=== PATIENT | female | born 1945 | race Caucasian/White ===

== ENCOUNTER 2022-03-19 15:20 | Emergency (ER) | payer OTHER ==
--- NOTE | 2022-03-19 16:14 | RAD REPORT ---
EXAM DESCRIPTION: RAD - Knee Left 3 View - 03/19/2022 3:57 pm CLINICAL HISTORY: PAIN COMPARISON: No comparisons FINDINGS: Diffuse osteopenia is seen. There is lucency involving the inferior pole of the patella li socrates related to a patella fracture. No dislocation.
--- NOTE | 2022-03-19 16:46 | EDPHYS ---
Physician Documentation [facility] Name: Olay Krause Age: 76 yrs Sex: Female : 1945 Arrival Date: 03/19/2022 Time: 15:21 Bed 14 Private MD: ED Physician Nixon Parks HPI: 03/19 16:42 This 76 yrs old Female presents to ER via Wheelchair with complaints of Fall Injury, kb Knee Pain. 16:42 Details of fall: The patient fell from an upright position, while walking. Onset: The kb symptoms/episode began/occurred just prior to arrival. Associated injuries: The patient sustained left knee, ecchymosis, painful injury, swelling. Severity of symptoms: At their worst the symptoms were mild, moderate, in the emergency department the symptoms are unchanged. The patient has not experienced similar symptoms in the past. The patient has not recently seen a physician. Pt reports left knee pain after falling onto it today. States she is able to walk, but increases pain when she bears weight. . 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 - Social history:: Smoking status: Patient denies any tobacco usage or history of. ROS: 16:37 Constitutional: Negative for fever, chills, and weight loss. kb 16:37 MS/extremity: Positive for ecchymosis, pain, swelling, tenderness, of the left knee. 16:37 All other systems are negative. Exam: 16:37 Constitutional: This is a well developed, well nourished patient who is awake, alert, kb and in no acute distress. Head/Face: Normocephalic, atraumatic. ENT: Moist Mucous membranes Respiratory: Respirations even and unlabored. No increased work of breathing. Talking in full sentences Neuro: Awake and alert, GCS 15, oriented to person, place, time, and situation. Moves all extremities. Normal gait. Psych: Awake, alert, with orientation to person, place and time. Behavior, mood, and affect are within normal limits. 16:37 Musculoskeletal/extremity: Extremities: grossly normal except: noted in the left knee: ecchymosis, pain, swelling, tenderness, ROM: limited active range of motion due to pain, Circulation is intact in all extremities. Sensation intact. Weight bearing: can bear weight with assistance only. Vital Signs: 15:30 BP 118 / 40; Pulse 71; Resp 16; Temp 97.6; Pulse Ox 100% ; Weight 77.11 kg; Height 5 ap3 ft. 3 in. (160.02 cm); Pain 5/10; 15:30 Body Mass Index 30.11 (77.11 kg, 160.02 cm) ap3 MDM: 16:08 Patient medically screened. kb 16:35 Data reviewed: vital signs, nurses notes. Data interpreted: Pulse oximetry: on room air kb is 100 %. Interpretation: normal. Counseling: I had a detailed discussion with the patient and/or guardian regarding: the historical points, exam findings, and any diagnostic results supporting the discharge/admit diagnosis, radiology results, the need for outpatient follow up, a orthopedic surgeon, to return to the emergency department if symptoms worsen or persist or if there are any questions or concerns that arise at home. 16:46 ED course: Pt declines pain medication at this time. kb 03/19 15:35 Order name: XRAY Knee LEFT 3 view; Complete Time: 16:17 ap3 03/19 16:23 Order name: Knee Immobilizer; Complete Time: 17:03 kb Administered Medications: No medications were administered Disposition Summary: 03/19/22 16:45 Discharge Ordered Location: Home kb Condition: Stable kb Diagnosis - Nondisplaced fracture left patella kb Followup: kb - With: Emergency Department - When: As needed - Reason: Worsening of condition Followup: kb - With: Private Physician - When: 2 - 3 days - Reason: Recheck today's complaints, Continuance of care, Re-evaluation by your physician Discharge Instructions: - Discharge Summary Sheet kb - Patellar Fracture, Adult kb Forms: - Medication Reconciliation Form kb - Thank You Letter kb - Antibiotic Education kb - Prescription Opioid Use kb Signatures: Dispatcher [employer] Phyllis Diaz FNP-C FNP-Ckb Prokisch, Amanda RN RN ap3 Corrections: (The following items were deleted from the chart) 16:27 16:23 Crutches ordered. kb kb
--- NOTE | 2022-03-19 16:46 | ER ---
Nurse's Notes [facility] Name: Olya Krause Age: 76 yrs Sex: Female : 1945 Arrival Date: 03/19/2022 Time: 15:21 Bed 14 Private MD: Diagnosis: Nondisplaced fracture left patella Presentation: 03/19 15:30 Chief complaint: Patient states: they were moving a rug around before her new furniture ap3 arrived when she tripped on said rug and fell on her knee. patient complains of left knee pain. Coronavirus screen: At this time, the client does not indicate any symptoms associated with coronavirus-19. Ebola Screen: No symptoms or risks identified at this time. Initial Sepsis Screen: Does the patient meet any 2 criteria? No. Patient's initial sepsis screen is negative. Does the patient have a suspected source of infection? No. Patient's initial sepsis screen is negative. Risk Assessment: Do you want to hurt yourself or someone else? Patient reports no desire to harm self or others. Onset of symptoms was March 19, 2022 at 15:00. 15:30 Method Of Arrival: Wheelchair ap3 15:30 Acuity: LOLA 4 ap3 Triage Assessment: 15:33 General: Appears in no apparent distress. uncomfortable, Behavior is calm, cooperative. ap3 Pain: Complains of pain in left knee Pain currently is 5 out of 10 on a pain scale. at worst was 8 out of 10 on a pain scale. Aggravated by increased activity, repositioning, weight bearing. Neuro: Level of Consciousness is awake, alert, obeys commands, Oriented to person, place, time, situation, Gait is unsteady. Cardiovascular: Patient's skin is warm and dry. Respiratory: Airway is patent Respiratory effort is even, unlabored. Musculoskeletal: Swelling present in left knee. 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 - Social history:: Smoking status: Patient denies any tobacco usage or history of. Screenin:34 Abuse screen: Denies threats or abuse. Nutritional screening: No deficits noted. ap3 Tuberculosis screening: No symptoms or risk factors identified. 17:03 Fall Risk Fall in past 12 months (25 points). No secondary diagnosis (0 pts). No IV (0 ww pts). Ambulatory Aid- None/Bed Rest/Nurse Assist (0 pts). Gait- Normal/Bed Rest/Wheelchair (0 pts) Mental Status- Oriented to own ability (0 pts). Total Galloway Fall Scale indicates Low Risk Score (25-44 pts). Fall prevention measures have been instituted. Side Rails Up X 2 Placed close to Nursing Station 1:1 attendant Assigned to Pt. Frequent Obs/Assesments occuring Family Present and informed to notify staff if they need to leave bedside As available Patient and Family Educated on Fall Prevention Program and strategies. Vital Signs: 15:30 BP 118 / 40; Pulse 71; Resp 16; Temp 97.6; Pulse Ox 100% ; Weight 77.11 kg; Height 5 ap3 ft. 3 in. (160.02 cm); Pain 5/10; 15:30 Body Mass Index 30.11 (77.11 kg, 160.02 cm) ap3 ED Course: 15:21 Patient arrived in ED. as 15:32 Triage completed. ap3 15:34 Arm band placed on left wrist. ap3 15:48 Phyllis Mcclain FNP-C is PHCP. kb 15:48 Nixon Parks MD is Attending Physician. kb 15:59 XRAY Knee LEFT 3 view In Process Unspecified. EDMS 17:03 Yaritza Carlisle, RN is Primary Nurse. ww 17:03 Patient has correct armband on for positive identification. Call light in reach. Adult ww w/ patient. 17:03 No provider procedures requiring assistance completed. Patient did not have IV access ww during this emergency room visit. Administered Medications: No medications were administered Medication: 17:03 VIS not applicable for this client. ww Outcome: 16:45 Discharge ordered by . kb 17:03 Discharged to home with family. ww 17:03 Condition: stable 17:03 Discharge instructions given to patient, family, Instructed on discharge instructions, follow up and referral plans. medication usage, safety practices, Demonstrated understanding of instructions, follow-up care, medications. 17:14 Patient left the ED. ww Signatures: Dispatcher [employer] EDMD Phyllis Mcclain FNP-C FNP-Ckb Martinez, Amelia as Prokisch, Amanda, RN RN ap3 Wood, Yaritza, RN RN ww
[2022-03-19 17:40] VITALS: BP 118/40; TEMP 97.6; O2SAT 100
== END 2022-03-19 17:14 | disposition home or self-care (01) ==
LOC: ER 15:20
DX: S82.002A Unspecified fracture of left patella, initial encounter for closed fracture (principal)
CPT/HCPCS: 99283